=== PATIENT | female | born 1985 | race Caucasian/White ===

== ENCOUNTER 2016-12-06 19:07 | Emergency (ER) | payer OTHER ==
[~2016-12-06] VITALS: Ht 175.3 cm; Wt 72.6 kg
[2016-12-06 19:46] VITALS: BP 112/78
[2016-12-06] MEDS ORDERED: ACETAMINOPHEN 160 MG/5 ML UDC ONE (20:01)
--- NOTE | 2016-12-06 20:54 | NUR ---
Patient to [facility].
--- NOTE | 2016-12-06 21:32 | NUR ---
Dr. Solitario evaluating patient.
[2016-12-06 22:24] VITALS: BP 108/78
== END 2016-12-06 22:20 | disposition home or self-care (01) ==
LOC: MED 19:07
DX: J02.9 Acute pharyngitis, unspecified (principal)
CPT/HCPCS: 99283